=== PATIENT | female | born 1995 | race Caucasian/White ===

== ENCOUNTER → 2018-04-04 09:58 | Outpatient (CLI) | payer OTHER, MEDICAID, SELFPAY ==
[2018-04-04 10:42] LABS: Add Manual Diff / Slide Review NO; Appearance Urine UA CLEAR; Basophils Percent Auto 0.5 % (0-2); Bilirubin Urine UA NEGATIVE (NEGATIVE); Color Urine UA YELLOW; Eosinophils Percent Auto 0.3 % (2-4); Glucose Urine UA NEGATIVE (Normal); Hemoglobin 13.7 g/dL (12.0-16.0); Ketones Urine UA TRACE (NEGATIVE); Leukocyte Esterase Urine UA NEGATIVE (NEGATIVE); Lymphocytes Percent Auto 27.1 % (25-40); Mean Corpuscular HGB Conc 34.1 % (30-36); Mean Corpuscular Hemoglobin 31.3 PG (26-34); Mean Corpuscular Volume 91.7 fL (80-100); Monocytes Percent Auto 5.3 % (3-14); Neutrophils Absolute Auto 6300 /uL (3000-5900); Neutrophils Percent Auto 66.8 % (50-75); Nitrite Urine UA Negative (Negative); Occult Blood Urine UA NEGATIVE (Negative); Platelet Count 308 X10^3/uL (150-400); Protein Urine UA NEGATIVE (Negative); Red Blood Cell Count 4.36 X10^6/uL (4.0-5.2); Red Cell Distribution Width 13.1 % (11.6-14.8); Specific Gravity Urine UA 1.015 (1.000-1.035); White Blood Cell Count 9.4 X10^3/uL (4.5-11.0)
[2018-04-04 10:45] LABS: Glucose 84 mg/dL (70-100)
[2018-04-04 10:49] LABS: Hemoglobin A1C% w Est Avg Glu 4.7 % (4.0-6.0)
[2018-04-04 11:31] LABS: Hepatitis B Surface Antigen NEGATIVE s/c (NEGATIVE); Rubella Antibody IgG 17.9 IU/mL (>15)
[2018-04-04 11:47] LABS: HIV 1 and 2 Antibody NEGATIVE (NEGATIVE); Hep C Virus Ab w/Reflex Quant NEGATIVE s/c (NEGATIVE)
[2018-04-05 13:49] LABS: HSV 2 IGG AB 1.19 index (< 0.90)
[2018-04-11 13:57] LABS: Rapid Plasma Reagin NON-REACTIVE
== END ==
PROVIDERS: PCP Family Medicine
DX: Z3A.01 Less than 8 weeks gestation of pregnancy (principal)
CPT/HCPCS: 36415; 80055; 81003; 82947; 83036; 86695; 86696; 86703; 86787; 86803; 86850; 86900; 86901; 87086

== ENCOUNTER 2018-04-21 13:44 | Emergency (ER) | payer OTHER, MEDICAID, SELFPAY ==
--- NOTE | 2018-04-21 13:50 | ED_ITS ---
HPI - General Adult General Chief complaint: GI Bleed Stated complaint: puking blood,broken toe Time Seen by Provider: 04/21/18 13:49 Source: patient Mode of arrival: ambulatory Limitations: no limitations History of Present Illness HPI narrative: patient is a here for evaluation of a possible broken toe on her right foot. Patient states that she hit her right toe on a piece of furniture at home. This occurred earlier today. Has had bruising since then with pain. She is also here for 1 episode of vomiting bright red blood clots. She states she has had morning sickness for some time now. She did vomit today. She did state that it was a fairly violent episode. states she did not cough up the blood. Does have some nausea now. She also states that she has symptoms consistent with her normal UTI like symptoms. Related Data Home Medications Medication Instructions Recorded Confirmed albuterol sulfate [Ventolin HFA] 1 puff IH PRN PRN #0 03/14/17 epinephrine #0 03/14/17 fexofenadine #0 03/14/17 fluticasone [Flonase Allergy 1 spray INTRANASAL QDAY #0 03/14/17 Relief] lamotrigine [Lamictal] 1 tab PO QDAY #0 03/14/17 quetiapine 25 mg #0 03/14/17 sumatriptan succinate [Imitrex] 25 mg PO PRN PRN #0 03/14/17 Previous Rx's Medication Instructions Recorded ciprofloxacin HCl [Cipro] 500 mg PO BID 5 Days #0 tab 03/14/17 hydrocodone-acetaminophen [Holcomb] 1 tab PO Q6HP PRN #5 tab 03/14/17 nitrofurantoin macrocrystal 100 mg PO BID 5 Days #10 cap 04/21/18 Allergies Allergy/AdvReac Type Severity Reaction Status Date / Time SEAFOOD Allergy Severe HIVES,SWELL Uncoded 01/15/18 12:27 ING SHELLFISH Allergy Severe HIVES, Uncoded 01/15/18 12:27 SWELLING CEFALEXIN Allergy Unknown RASH Uncoded 01/15/18 12:27 From KEFLEX Allergy Unknown DIFFUSE Uncoded 01/15/18 12:27 BODY ITCHING SULFA Allergy Unknown Uncoded 01/15/18 12:27 Review of Systems Constitutional Denies fatigue and Denies fever(s) ENT Ears, Nose, Mouth, and Throat: Denies dysphagia, Reports dizziness, Denies sore throat and Denies throat swelling Cardiovascular Denies chest pain, Denies syncope, Denies palpitations and Denies dyspnea Respiratory Denies cough and Denies dyspnea Gastrointestinal Gastrointestinal: Denies abdominal pain, Denies constipation, Denies cramping, Denies dysphagia, Denies diarrhea, Denies loose stools, Reports nausea, Reports vomiting and Reports hematemesis Genitourinary Reports dysuria, Denies flank pain, Reports urinary hesitancy, Reports urinary urgency and Denies vaginal discharge Musculoskeletal Comments: Right toe pain Integumentary/Breasts Comments: bruising around the right toe Neurologic Denies confusion, Reports dizziness and Denies syncope Psychiatric Denies confusion Endocrine Denies fatigue and Denies palpitations Hematologic/Lymphatic Denies easy bleeding and Denies easy bruising Allergic/Immunologic Denies throat swelling Exam Initial Vital Signs Initial Vital Signs: Vital Signs Temperature 98.8 F 04/21/18 13:51 Pulse Rate 102 H 04/21/18 13:51 Respiratory Rate 20 04/21/18 13:51 Blood Pressure 103/69 04/21/18 13:51 Pulse Oximetry 99 04/21/18 13:51 Const General: cooperative, healthy appearing, comfortable, well developed, well groomed and No acute distress Orientation: alert, awake and oriented x3 Resp Effort & Inspection: normal respiratory effort Auscultation: clear to auscultation bilaterally Cardio Rate: regular rate Rhythm: regular rhythm Pulses: radial pulses present GI Inspection: non-distended Palpation: soft, No firm, No guarding and No tender Skin Lesions: no lesions Rashes: no rashes Neuro General: alert, awake and oriented x3 Cognition: normal cognition Speech: speech normal Gait: normal gait Motor: muscle tone normal throughout Sensory Exam: no sensory deficits noted Extrem Other: patient with tenderness to palpation in bruising around the 3rd toe on her right foot. This does not extend proximal to the MTP joint. No breaks in the skin. Nail intact. Psych Appearance: grossly normal and well kempt Course Vital Signs - 8 hr 04/21/18 13:51 Temperature 98.8 F Pulse Rate 102 H Respiratory Rate 20 Blood Pressure 103/69 Pulse Oximetry 99 Medical Decision Making MDM Narrative Medical decision making narrative: Patient's right toe exam is consistent with a right toe contusion versus fracture. Will hold on any x-ray for now. It was cortes-taped to the toe next to it. She does have which she states has a urinary tract infection. She states she gets chronic urinary tract infections. She states that she was on a medication but was taken off that medication from her chop saw operator because it was causing her rash. Will start her on Macrobid today secondary to her symptoms. The nausea vomiting is chronic. She did have 1 episode of what appeared to be hematemesis earlier today. No shortness of breath. No abdominal tenderness. I suspect this is secondary to a Inga- Boyd tear as it is most consistent with her history and physical exam. We did discuss her taking anti reflux medications that she can buy [id number]. We discussed return precautions. Will send her home with a prescription for antibiotics. She expressed understanding and agreement with plan. Discharge Plan Departure Patient Disposition: Home, Self-Care Clinical Impression: Inga-Boyd tear, Urinary tract infection, Fracture of right toe, Instructions: DI for Urinary Tract Infection (UTI), How To Perform RICE (Rest, Ice, Compress, Elevate), Nausea and Vomiting-Adult Activity Restrictions/Additional Instructions: Make sure you are increasing your fluid intake. recommend that you take an ouiz-uem-asuyood reflux medications such as Maalox or Tums. Take the antibiotics as directed. Keep all of your scheduled medical appointments. Return to the emergency department for any new or worsening symptoms Prescriptions: New nitrofurantoin macrocrystal 100 mg capsule 100 mg PO BID 5 Days Qty: 10 RF: 0 No Action lamotrigine [Lamictal] 100 MG tablet 1 tab PO QDAY Qty: 0 RF: 0 fexofenadine 60 MG tablet Qty: 0 RF: 0 epinephrine 0.3 MG/0.3 ML auto-injector Qty: 0 RF: 0 albuterol sulfate [Ventolin HFA] 90 MCG/PUFF HFA aerosol inhaler 1 puff IH PRN PRNQty: 0 RF: 0 sumatriptan succinate [Imitrex] 25 MG tablet 25 mg PO PRN PRNQty: 0 RF: 0 hydrocodone-acetaminophen [Holcomb] 5 MG/325 MG tablet 1 tab PO Q6HP PRNQty: 5 RF: 0 ciprofloxacin HCl [Cipro] 500 MG tablet 500 mg PO BID 5 Days Qty: 0 RF: 0 fluticasone [Flonase Allergy Relief] 9.9 ML spray,suspension 1 spray Intranasal QDAY Qty: 0 RF: 0 quetiapine 25 MG tablet 25 mg Qty: 0 RF: 0
[2018-04-21 13:51] VITALS: BP 103/69; PULSE 102; RESP 20; TEMP 37.1; O2SAT 99
== END 2018-04-21 14:15 | disposition home or self-care (01) ==
PROVIDERS: Emergency Provider Emergency Medicine; PCP Family Medicine
DX: N39.0 Urinary tract infection, site not specified (principal); K22.6 Gastro-esophageal laceration-hemorrhage syndrome
CPT/HCPCS: 99282

== ENCOUNTER 2018-05-20 21:57 | Emergency (ER) | payer OTHER, MEDICAID, SELFPAY ==
[2018-05-20 22:06] VITALS: BP 115/81; PULSE 91; RESP 15; TEMP 36.9; O2SAT 100; BMI 27.4
--- NOTE | 2018-05-20 23:01 | ED.NAVMDI ---
HPI - Nausea/Vomiting/Diarrhea General Chief complaint: Nausea/Vomiting/Diarrhea Stated complaint: PUKING BLOOD Time Seen by Provider: 05/20/18 22:47 Source: patient and old records reviewed Mode of arrival: ambulatory Limitations: no limitations History of Present Illness HPI Narrative: Patient is a 22-year-old female who is a he is currently 15 weeks presenting with vomiting and hematemesis. She has been diagnosed with hyperemesis gravidarum. Today she says she threw up bright red blood 2 times the 2nd time was about a quarter cup full. This is happened to her during this in the past. Today she was vomiting up quite a bit and forcefully. No fevers or chills no abdominal pain. She actually saw her doctor today who refilled her Zofran prescription. MD complaint: nausea and vomiting Related Data Home Medications Medication Instructions Recorded Confirmed albuterol sulfate [Ventolin HFA] 1 puff IH PRN PRN #0 03/14/17 05/20/18 epinephrine See Label Instructions .ROUTE 03/14/17 05/20/18 .COMPLEX PRN #0 PNV cmb#95-ferrous fumarate-FA 1 tab PO DAILY 05/20/18 05/20/18 [] [id number]-utbnenlssyuvr-hcuv 1 cap PO Q4H PRN 05/20/18 05/20/18 [Fioricet] Previous Rx's Medication Instructions Recorded ondansetron HCl 4 mg tablet 4 mg PO BID-TID PRN #30 tab 05/02/18 nitrofurantoin monohyd/m-cryst 100 mg PO BID #14 cap 05/21/18 [Macrobid] Allergies Allergy/AdvReac Type Severity Reaction Status Date / Time SEAFOOD Allergy Severe HIVES,SWELL Uncoded 05/20/18 22:06 ING SHELLFISH Allergy Severe HIVES, Uncoded 05/20/18 22:06 SWELLING CEFALEXIN Allergy Unknown RASH Uncoded 05/20/18 22:06 From KEFLEX Allergy Unknown DIFFUSE Uncoded 05/20/18 22:06 BODY ITCHING SULFA Allergy Unknown Uncoded 05/20/18 22:06 Review of Systems Review of Systems All systems reviewed & are unremarkable except as noted in HPI and below Constitutional Denies chills, Denies fever(s), Denies lethargy and Denies weakness ENT Ears, Nose, Mouth, and Throat: Denies vertigo, Denies dizziness, Denies facial pain and Denies epistaxis Cardiovascular Denies chest pain, Denies irregular heart rhythm, Denies lightheadedness, Denies palpitations, Denies dyspnea, Denies dyspnea on exertion and Denies orthopnea Respiratory Denies cough, Denies dyspnea, Denies dyspnea on exertion and Denies wheezing Gastrointestinal Gastrointestinal: Reports as per HPI, Reports vomiting and Reports hematemesis Musculoskeletal Denies back pain, Denies muscle weakness, Denies numbness and Denies tingling Integumentary/Breasts Denies pruritus, Denies erythema, Denies rash and Denies wounds Neurologic Denies confusion, Denies vertigo, Denies dizziness, Denies numbness, Denies tingling and Denies weakness Psychiatric Denies anxiety, Denies confusion, Denies depression, Denies homicidal ideation and Denies suicidal ideation Endocrine Denies palpitations Allergic/Immunologic Denies wheezing PFSH Medical History Hyperemesis gravidarum (Acute) Inga-Boyd syndrome (Acute) Exam Initial Vital Signs Initial Vital Signs: Vital Signs Temperature 98.5 F 05/20/18 22:06 Pulse Rate 91 H 05/20/18 22:06 Respiratory Rate 15 05/20/18 22:06 Blood Pressure 115/81 H 05/20/18 22:06 Pulse Oximetry 100 05/20/18 22:06 Const General: cooperative, healthy appearing, comfortable, No acute distress and No diaphoretic Orientation: alert, awake and oriented x3 Eyes Sclera: sclerae normal Neck Neck: normal visual inspection, full ROM and no meningeal signs Chest Chest: normal inspection of the chest Resp Effort & Inspection: normal respiratory effort Auscultation: clear to auscultation bilaterally, no rhonchi and no wheezes Cardio Rate: regular rate Rhythm: regular rhythm Heart Sounds: S1 normal and S2 normal GI Inspection: normal to inspection Palpation: soft, No firm, No guarding and No tender General: No CVA tenderness Neuro General: alert, awake and oriented x3 Cranial Nerves: CN's II-XI intact bilaterally Course Orders Ordered: ED Orders 05/20/18 22:55 Complete Blood Count AUTO DIFF Stat Comprehensive Metabolic Panel Stat 05/21/18 00:31 Urine Microscopic Stat Discontinued Medications Sodium Chloride (Normal Saline 0.9%) 500 mls @ 1,000 mls/hr IV BOLUS ONE Stop: 05/20/18 23:16 Last Infusion: 05/21/18 00:25 Dose: 0 mls/hr Admin: 05/20/18 23:02 Dose: 1,000 mls/hr Famotidine (Pepcid) 20 mg in 50 mls @ 200 mls/hr IV NOW ONE Stop: 05/20/18 23:15 Last Infusion: 05/20/18 23:36 Dose: 0 mls/hr Admin: 05/20/18 23:17 Dose: 200 mls/hr Nitrofurantoin Macrocrystals (Macrobid 100mg Prepack) 1 bottle MISC SEEINSTR ONE Stop: 05/21/18 01:14 Last Admin: 05/21/18 01:25 Dose: 1 bottle Ondansetron HCl (Zofran) 4 mg IV NOW ONE Stop: 05/20/18 22:51 Last Admin: 05/20/18 23:02 Dose: 4 mg Vital Signs - 8 hr 05/20/18 22:06 Temperature 98.5 F Pulse Rate 91 H Respiratory Rate 15 Blood Pressure 115/81 H Pulse Oximetry 100 MDM - Nausea/Vomiting/Diarrhea Lab Data Attestation: I reviewed the patient's lab results. Result diagrams: 05/20/18 22:55 05/20/18 22:55 Lab Results 05/20/18 05/20/18 05/21/18 Range/Units 22:55 22:55 00:31 WBC 9.7 (4.5-11.0) X10^3/uL RBC 4.00 (4.0-5.2) X10^6/uL Hgb 12.8 (12.0-16.0) g/dL Hct 36.5 (36-46) % MCV 91.2 (80-100) fL MCH 32.0 (26-34) PG MCHC 35.1 (30-36) % RDW 12.8 (11.6-14.8) % Plt Count 236 (150-400) X10^3/uL Neut % (Auto) 62.8 (50-75) % Lymph % (Auto) 30.4 (25-40) % Bureau % (Auto) 6.0 (3-14) % Eos % (Auto) 0.5 L (2-4) % Baso % (Auto) 0.3 (0-2) % Neut # (Auto) 6100 H (8232-6539) /uL Sodium 137 (137-145) mmol/L Potassium 4.1 (3.4-5.1) mmol/L Chloride 105 (98-107) mmol/L Carbon Dioxide 24 (22-32) mmol/L BUN 9 (7-17) mg/dL Creatinine 0.70 (0.52-1.04) mg/dL Estimated GFR > 60.0 (>60) mL/min BUN/Creatinine Ratio 12.9 (6-22) Glucose 78 (70-100) mg/dL Calcium 9.2 (8.4-10.2) mg/dL Total Bilirubin 0.3 (0.2-1.3) mg/dL AST 25 (14-36) IU/L ALT 41 (9-52) IU/L Alkaline Phosphatase 59 (38-126) U/L Total Protein 6.4 (6.3-8.2) g/dL Albumin 3.7 (3.5-5.0) g/dL Globulin 2.7 (1.7-4.1) g/dL Albumin/Globulin Ratio 1.4 (1.0-2.8) Urine RBC None seen (0-5/HPF) Urine WBC 0-1/hpf (0-5/HPF) Ur Squamous Epith Cells 5-10 /hpf H Urine Bacteria Many (>30) H (None) Urine Mucus 1+ H (Negative) Ur Culture Indicated? Cult not indicated Micro UA Comment Not Reportable MDM Narrative Medical decision making narrative: Patient has had no further vomiting in the ED. Hemodynamically stable. Hemoglobin and hematocrit are minimally decreased from March. Electrolytes are within normal limits. Glucose slightly low. She overall does not appear toxic he is tolerating oral fluids. Urine does have leukocytes and bacteria, but also many squamous cells likely contaminated. However will air on side of caution. Discharge Plan Departure Patient Disposition: Home, Self-Care Clinical Impression: Inga-Boyd syndrome, UTI (urinary tract infection) during , Hyperemesis gravidarum Discharge Date/Time: 05/21/18 01:55 Interventions: ED Discharge Assessment Last Done: 05/21/18 01:55 Instructions: Urinary Tract Infection, Inga Boyd Syndrome Activity Restrictions/Additional Instructions: *You have been diagnosed with Inga-Boyd tear, UTI, hyperemesis *What to do: Follow instructions previously given for staying hydrated *Continue to take medications as directed Macrobid 1 pill twice a day for 7 days *Follow up with your primary care provider in 2-3 days *Return to ER if you should have vomiting blood, pain, fever or any new, worsening or concerning symptoms Prescriptions: New nitrofurantoin monohyd/m-cryst [Macrobid] 100 mg capsule 100 mg PO BID Qty: 14 RF: 0 No Action epinephrine 0.3 MG/0.3 ML auto-injector See Label Instructions .ROUTE .COMPLEX PRN (Reason: Allergic Reaction) Qty: 0 RF: 0 albuterol sulfate [Ventolin HFA] 90 MCG/PUFF HFA aerosol inhaler 1 puff IH PRN PRN (Reason: Shortness Of Breath Or Wheezing) Qty: 0 RF: 0 ondansetron HCl 4 mg tablet 4 mg PO BID-TID PRN (Reason: nausea and vomiting) Qty: 30 RF: 0 hejysslgwq-euqbouecnhond-pvtg [Fioricet] 50-300-40 mg Capsule 1 cap PO Q4H PRN (Reason: Headache) RF: 0 PNV cmb#95-ferrous fumarate-FA [] 28 mg iron- 800 mcg Tablet 1 tab PO DAILY RF: 0
[2018-05-20 23:02] LABS: Add Manual Diff / Slide Review NO; Basophils Percent Auto 0.3 % (0-2); Eosinophils Percent Auto 0.5 % (2-4); Hematocrit 36.5 % (36-46); Hemoglobin 12.8 g/dL (12.0-16.0); Lymphocytes Percent Auto 30.4 % (25-40); Mean Corpuscular HGB Conc 35.1 % (30-36); Mean Corpuscular Volume 91.2 fL (80-100); Neutrophils Absolute Auto 6100 /uL (3000-5900); Neutrophils Percent Auto 62.8 % (50-75); Platelet Count 236 X10^3/uL (150-400); Red Cell Distribution Width 12.8 % (11.6-14.8); White Blood Cell Count 9.7 X10^3/uL (4.5-11.0)
[2018-05-20] MEDS: ONDANSETRON 4 MG/2 ML INJ IV (23:02)
[2018-05-20] MEDS: SODIUM CHLORIDE 0.9% 500 ML 1000 ML IV (23:02)
[2018-05-20 23:15] LABS: Alanine Aminotransferase 41 IU/L (9-52); Albumin 3.7 g/dL (3.5-5.0); Albumin Globulin Ratio 1.4 (1.0-2.8); Alkaline Phosphatase 59 U/L (38-126); Aspartate Aminotransferase 25 IU/L (14-36); BUN Creatinine Ratio 12.9 (6-22); Bilirubin Total 0.3 mg/dL (0.2-1.3); Blood Urea Nitrogen 9 mg/dL (7-17); Calcium 9.2 mg/dL (8.4-10.2); Carbon Dioxide 24 mmol/L (22-32); Chloride 105 mmol/L (98-107); Estimated Glomerular Filt Rate > 60.0 mL/min (>60); Globulin 2.7 g/dL (1.7-4.1); Glucose 78 mg/dL (70-100); HEMOLYSIS < 15 (0-50); Potassium 4.1 mmol/L (3.4-5.1); Sodium 137 mmol/L (137-145); Total Protein 6.4 g/dL (6.3-8.2)
[2018-05-20] MEDS: FAMOTIDINE 20 MG/50 ML PIGGYBACK 200 MG IV (23:17)
[2018-05-21 00:49] LABS: RBC Urine None Seen (0-5/HPF)
[2018-05-21 01:03] LABS: WBC Urine 0-1/HPF (0-5/HPF)
[2018-05-21 01:04] LABS: Bacteria Urine Many (>30); Culture Indicated Urine Cult Not Indicated; Mucus Urine 1+ (Negative); Squamous Epithelial Cell Urine 5-10 /HPF
[2018-05-21] MEDS: NITROFURANTOIN 100MG PREPACK 1 BOTTLE MISC (01:25)
== END 2018-05-21 01:55 | disposition home or self-care (01) ==
PROVIDERS: Emergency Provider Emergency Medicine; PCP Family Medicine
DX: O21.0 Mild hyperemesis gravidarum (principal); O23.41 Unspecified infection of urinary tract in pregnancy, first trimester; K22.6 Gastro-esophageal laceration-hemorrhage syndrome; Z3A.15 15 weeks gestation of pregnancy
CPT/HCPCS: 36591; 80053; 81003; 81015; 85025; 96361; 96365; 96375; 99283; 99284; J2405

== ENCOUNTER → 2018-05-27 16:06 | Outpatient (CLI) | payer OTHER, MEDICAID, SELFPAY ==
[2018-05-27 17:55] LABS: Free T3, Triiodothyronine Free 3.16 pg/mL (2.77-5.27); Free T4, Direct Thyroxine 0.95 ng/dL (0.78-2.19)
[2018-05-27 18:09] LABS: TSH w/ Reflex to FT4 0.83 uIU/mL (0.47-4.68)
[2018-06-02 16:32] LABS: AFP, Serum 64.6 ng/mL; Calc Gestational Age 16.1; Cigarette Smoker N; Donated Egg NOT GIVEN; Donor Egg Age NOT GIVEN; Inhibin A, Dimeric 192 pg/mL; Maternal Weight 150 lbs; Number of Fetuses 1; Previous Pregnancy Down Syndro NOT GIVEN; hCG, MoM 0.97; hCG, Serum 32.6 IU/mL
== END ==
PROVIDERS: PCP Family Medicine
DX: Z36.9 Encounter for antenatal screening, unspecified (principal); Z3A.16 16 weeks gestation of pregnancy; O21.0 Mild hyperemesis gravidarum
CPT/HCPCS: 36415; 82105; 82677; 84439; 84443; 84481; 84702; 86336

== ENCOUNTER → 2018-10-10 15:53 | Outpatient (CLI) | payer OTHER, MEDICAID, SELFPAY ==
[2018-10-15 17:57] LABS: Strep Grp B PCR NEG for Grp B Strep
== END ==
PROVIDERS: PCP Family Medicine
DX: Z34.93 Encounter for supervision of normal pregnancy, unspecified, third trimester (principal); Z3A.36 36 weeks gestation of pregnancy
CPT/HCPCS: 87653

== ENCOUNTER 2018-11-03 10:33 | Inpatient (IN) | payer OTHER, MEDICAID, SELFPAY ==
[2018-11-03] MEDS: LACTATED RINGERS 1,000 ML 42 ML IV (11:10)
[2018-11-03 11:42] VITALS: BP 128/76
--- NOTE | 2018-11-03 12:48 | PM.PREOP ---
Pre-operative Note Interval Note History & Physical reviewed/Exam performed by Physician: Yes Changes to H&P: No ASA Class (for procedural sedation): I
[2018-11-03 13:06] LABS: Add Manual Diff / Slide Review NO; Basophils Absolute Auto 0 /uL (0-100); Basophils Percent Auto 0.4 % (0-2); Eosinophils Absolute Auto 0 /uL (0-450); Eosinophils Percent Auto 0.4 % (2-4); Hematocrit 34.9 % (36-46); Hemoglobin 11.6 g/dL (12.0-16.0); Lymphocytes Absolute Auto 1700 /uL (1100-4500); Lymphocytes Percent Auto 17.5 % (25-40); Mean Corpuscular HGB Conc 33.3 % (30-36); Mean Corpuscular Hemoglobin 30.9 PG (26-34); Mean Corpuscular Volume 92.7 fL (80-100); Monocytes Absolute Auto 600 /uL (0-900); Monocytes Percent Auto 6.2 % (3-14); Neutrophils Absolute Auto 7200 /uL (1500-7000); Neutrophils Percent Auto 75.5 % (50-75); Platelet Count 229 X10^3/uL (150-400); Red Blood Cell Count 3.77 X10^6/uL (4.0-5.2); Red Cell Distribution Width 13.2 % (11.6-14.8); White Blood Cell Count 9.6 X10^3/uL (4.5-11.0)
[2018-11-03] MEDS: CEFOTETAN 2 GM/50 ML PIGGYBACK IV (13:23)
--- NOTE | 2018-11-03 13:32 | SUR.OPER ---
Supine on padded OR bed, head on pillow, arms secured on padded arm boards at <90 degrees abduction, legs uncrossed, safety belt at thigh, tape over blanket over lower legs.
[2018-11-03 14:13] VITALS: BP 110/63; PULSE 66; RESP 15; O2SAT 96
--- NOTE | 2018-11-03 14:14 | PM.GYNOP.1 ---
Operative Date/Time/Diagnoses Date of procedure: 11/03/18 Time of procedure: 14:14 Pre-op diagnosis: Term intrauterine term intrauterine 39 weeks Post-op diagnosis: same Procedure: Procedures Operation Date: 11/03/18 13:30 Actual Procedures Side Surgeon p Section-Repeat Leo Colunga MD Indications: Term intrauterine 39 weeks History of prior section Surgeon: Leo Colunga Tire Rebuilder: Rita Bird Anesthesia Type: Spinal Operative Notes Findings: Normal uterus normal tubes and ovaries Live-born male infant Closure Type: primary Specimen(s): none Estimated blood loss (mL): 500 Blood products transfused: none Procedure in detail: The patient was placed supine upon the operating table and anesthetized. She was then draped and prepared in the usual fashion. Transverse incision is made through the old scar the subcutaneous tissue incised to the fascia. Fascia was incised with a sharp knife transversely in each direction. The pyramidalis muscles were incised the midline. Incision was then widened by blunt finger dissection. Peritoneum was picked up and incised and widened by blunt finger dissection. The bladder blade was set in place. Peritoneum over the lower uterine segment was picked up and incised laterally in each direction in the bladder taken down. Bladder blade was then replaced. Transverse scoring incision was made across the lower uterine segment. Perforating incision was made centrally. Membranes were ruptured and a live-born male was delivered with scores of nine at 1 min and nine at 5 min in good condition. The respiratory therapist and nurses were in attendance) oz infant normal in good condition. Cord blood was obtained. Placenta was removed without manual manipulation. All membranes were massage from the endometrial cavity. Lateral edges of the incision were grasped with Allis [place] clamps. The incision was closed in an imbricating fashion using a two layer technique with 1. Chromic suture. No bleeding points were seen. Visceral peritoneum was closed with a running two 0 chromic suture. Tubes and ovaries appeared to be normal. The parietal perineum was grasped and closed with a running two 0 chromic suture. Area was copiously irrigated. The pyramidal muscles were reapproximated in the midline using 1. Vicryl suture. The fascia was closed with two continuous 1. Vicryl sutures. Area was copiously irrigated. Subcutaneous tissue was closed in two layers. 1st layer was interrupted three 0 Vicryl suture. 2nd layer was a running horizontal mattress three 0 Vicryl suture. The skin was further approximated with Steri-Strips. The end of the procedure the wound was dry. There is no bleeding. The urine was clear. Patient was taken to the recovery room in satisfactory condition. Post-operative Condition: stable Disposition: PACU Plan for aftercare: To Labor and delivery
[2018-11-03 14:19] VITALS: BP 109/72; PULSE 74; RESP 16; O2SAT 97
--- NOTE | 2018-11-03 14:20 | P.OP_ITS ---
Operative Date/Time/Diagnoses Date of procedure: 11/03/18 Time of procedure: 14:14 Pre-op diagnosis: Term intrauterine term intrauterine 39 weeks Post-op diagnosis: same Procedure: Procedures Operation Date: 11/03/18 13:30 Actual Procedures Side Surgeon p Section-Repeat Leo Colunga MD Indications: Term intrauterine 39 weeks History of prior section Surgeon: Leo Colunga Bicycle Repair Technician: Rita Bird Anesthesia Type: Spinal Operative Notes Findings: Normal uterus normal tubes and ovaries Live-born male infant Closure Type: primary Specimen(s): none Estimated blood loss (mL): 500 Blood products transfused: none Procedure in detail: The patient was placed supine upon the operating table and anesthetized. She was then draped and prepared in the usual fashion. Transverse incision is made through the old scar the subcutaneous tissue incised to the fascia. Fascia was incised with a sharp knife transversely in each direction. The pyramidalis muscles were incised the midline. Incision was then widened by blunt finger dissection. Peritoneum was picked up and incised and widened by blunt finger dissection. The bladder blade was set in place. Peritoneum over the lower uterine segment was picked up and incised laterally in each direction in the bladder taken down. Bladder blade was then replaced. Transverse scoring incision was made across the lower uterine segment. Perforating incision was made centrally. Membranes were ruptured and a live- born male infant was delivered with scores of nine at 1 min and nine at 5 min in good condition. The respiratory therapist and nurses were in attendance) oz normal in good condition. Cord blood was obtained. Placenta was removed without manual manipulation. All membranes were massage from the endometrial cavity. Lateral edges of the incision were grasped with Allis [place] clamps. The incision was closed in an imbricating fashion using a two layer technique with 1. Chromic suture. No bleeding points were seen. Visceral peritoneum was closed with a running two 0 chromic suture. Tubes and ovaries appeared to be normal. The parietal perineum was grasped and closed with a running two 0 chromic suture. Area was copiously irrigated. The pyramidal muscles were reapproximated in the midline using 1. Vicryl suture. The fascia was closed with two continuous 1. Vicryl sutures. Area was copiously irrigated. Subcutaneous tissue was closed in two layers. 1st layer was interrupted three 0 Vicryl suture. 2nd layer was a running horizontal mattress three 0 Vicryl suture. The skin was further approximated with Steri-Strips. The end of the procedure the wound was dry. There is no bleeding. The urine was clear. Patient was taken to the recovery room in satisfactory condition. Post-operative Condition: stable Disposition: PACU Plan for aftercare: To Labor and delivery
--- NOTE | 2018-11-03 14:21 | SUR.OPER ---
Healthy baby boy born at 1328, heart rate 143. 9. Suman lira MD, resident assisted.
[2018-11-03] MEDS: LACTATED RINGERS 1,000 ML 100 ML IV (16:22)
[2018-11-03] MEDS: OXYCODONE/ACETAMINOPHEN 5/325 TABLET 1 TAB PO (17:10)
[2018-11-03] MEDS: OXYCODONE/ACETAMINOPHEN 5/325 TABLET 2 TAB PO ×2 (18:39→22:34)
[2018-11-03] MEDS: KETOROLAC 30 MG/ML VIAL IV (19:53)
[2018-11-04] MEDS: KETOROLAC 30 MG/ML VIAL IV ×2 (02:35→08:22)
[2018-11-04] MEDS: OXYCODONE/ACETAMINOPHEN 5/325 TABLET 2 TAB PO ×2 (05:29→18:10)
[2018-11-04 07:08] LABS: Hemoglobin 10.5 g/dL (12.0-16.0)
--- NOTE | 2018-11-04 08:04 | PM.OBPN.1 ---
Subjective - OB Patient comments: no complaints and pain well controlled [place] baby status: doing well [place] feeding status: exclusively breast feeding Narrative: Patient post section doing well Date Patient Seen: 11/04/18 Time Patient Seen: 08:05 Exam Vital Signs (past 8 hours): Oxygen Delivery Method Room Air Narrative Exam Narrative: Fundus U minus three Incision looks fine Lochia scant Objective Labs Result Diagrams: 11/04/18 06:40 Labs: Laboratory Results - last 24 hr 11/03/18 11/03/18 11/04/18 11:10 11:10 06:40 WBC 9.6 RBC 3.77 L Hgb 11.6 L Hct 34.9 L MCV 92.7 MCH 30.9 MCHC 33.3 RDW 13.2 Plt Count 229 Neut % (Auto) 75.5 H Lymph % (Auto) 17.5 L [place] % (Auto) 6.2 Eos % (Auto) 0.4 L Baso % (Auto) 0.4 Neut # (Auto) 7200 H Lymph # (Auto) 1700 [place] # (Auto) 600 Eos # (Auto) 0 Baso # (Auto) 0 Blood Type O Negative Antibody Screen Positive Antibody Identification Anti-D Maternal Bleed Negative 11/04/18 11/04/18 06:40 06:40 WBC RBC Hgb 10.5 L Hct 31.0 L MCV MCH MCHC RDW Plt Count Neut % (Auto) Lymph % (Auto) [place] % (Auto) Eos % (Auto) Baso % (Auto) Neut # (Auto) Lymph # (Auto) [place] # (Auto) Eos # (Auto) Baso # (Auto) Blood Type Antibody Screen Cancelled Antibody Identification Maternal Bleed Assessment & Plan Plan day: 1 plan OB: routine care and routine postop care Comments: Doing well no problems Time Spent With Patient Total time spent is greater than 50% in coordination of care (as documented) at patient's floor/unit and/or counseling patient: less than 15 minutes
[2018-11-04] MEDS: DOCUSATE 250 MG CAPSULE PO (08:23)
[2018-11-04] MEDS: PRENATAL VIT,CALC/IRON/FOLIC 1 TABLET 1 TAB PO (08:23)
[2018-11-04] MEDS: OXYCODONE/ACETAMINOPHEN 5/325 TABLET 1 TAB PO (13:42)
[2018-11-04] MEDS: RHO(D) IMMUNE GLOBULIN 1,500 UNIT SYRINGE 1500 UNIT IM (14:55)
[2018-11-04] MEDS: IBUPROFEN 600 MG TABLET PO (20:11)
[2018-11-05] MEDS: OXYCODONE/ACETAMINOPHEN 5/325 TABLET 2 TAB PO ×2 (00:27→05:33)
[2018-11-05] MEDS: IBUPROFEN 600 MG TABLET PO ×2 (05:32→11:41)
[2018-11-05] MEDS: DOCUSATE 250 MG CAPSULE PO (09:31)
[2018-11-05] MEDS: OXYCODONE/ACETAMINOPHEN 5/325 TABLET 1 TAB PO (09:32)
[2018-11-05 09:54] VITALS: BP 102/69; PULSE 79; RESP 18; TEMP 36.9
--- NOTE | 2018-11-05 10:47 | P.DS_ITS ---
Discharge Providers Date of admission: 11/03/18 10:33 Primary care physician: Brooke Mak DO Consults: 11/03/18 15:25 Consult to Production Supervisor Off Shift Routine Comment: Discharge provider: Audelia Au MD Discharge Date: 11/05/18 Summary Date Patient Seen: 11/05/18 Time Patient Seen: 10:46 Hospital Course: Patient was admitted for repeat low-transverse section at 39 weeks. She and the baby had no problems post . Patient denies any signs or symptoms of preeclampsia. Her pain is under control with narcotic and Motrin. She is urinating and ambulating well. She is passing gas. Blood pressure 102/69, pulse 79, temperature 98.5? Abdomen is soft, nontender. Uterus is firm, at U, appropriately tender. Incision is clean, dry, intact without evidence of infection. Mild lochia. Extremities without edema and nontender. Patient's blood type is O negative, she did receive RhoGAM prior to discharge, rubella immune Baby Boy measuring 6 lb 3.9 oz, 2833 g Peripartum Data Delivery Method: Section Procedures: Repeat low-transverse section complications: none Status at Discharge Functional status at discharge: independent ambulation Overall status at discharge: patient is progressing back to baseline Time Spent with Patient Total time spent providing and/or coordinating discharge services: Objective Labs Result Diagrams: 11/04/18 06:40 Discharge Plan Discharge Plan Patient Disposition: Home Discharge Med Rec/Prescriptions Prescriptions: New oxycodone-acetaminophen 5-325 mg Tablet 2 tab PO Q4HR PRN (Reason: Pain, Severe (7-10)) Qty: 40 RF: 0 ibuprofen 600 mg Tablet 600 mg PO Q6HR PRN (Reason: As Needed For Fever/Mild Pain) Qty: 30 RF: 0 docusate sodium 250 mg Capsule 250 mg PO DAILY Qty: 20 RF: 0 Continue epinephrine 0.3 MG/0.3 ML auto-injector See Label Instructions .ROUTE .COMPLEX PRN (Reason: Allergic Reaction) Qty: 0 RF: 0 albuterol sulfate [Ventolin HFA] 90 MCG/PUFF HFA aerosol inhaler 1 puff IH PRN PRN (Reason: Shortness Of Breath Or Wheezing) Qty: 0 RF: 0 PNV cmb#95-ferrous fumarate-FA [] 28 mg iron- 800 mcg Tablet 1 tab PO DAILY RF: 0 No Action Double Electric Breast Pump Qty: 1 RF: 0 Follow up/Referrals: Brooke Marcano DO [Primary Care Provider] - Leo Colunga MD [Family Provider] - 1 Week (Incision check with Dr. Au on Saturday11/12/18 at 10:45 AM.) Provider Discharge Instructions Diet: Regular Activity: Nothing In vagina for 4 weeks. Do not lift anything heavier than the baby for 6 weeks Skin/Wound/Dressing Care Report to your healthcare provider any signs of infection, such as:: chills, fever, increased pain and unusual redness Dressing: Leave Steri-Strips in place. Can get wet just pat dry. Remove after 1 week Visit Report/Discharge Packet Stand Alone Forms: Discharge: Care Visit Report Forms: Stroke Signs & Symptoms Discharge Data Primary Care Provider: Brooke Marcano Attending Provider: Leo Colunga Admit Date/Time: 11/03/18 10:33 Discharges patient from system. Discharge Date/Time: 11/05/18 12:00
== END 2018-11-05 12:00 | disposition home or self-care (01) | DRG 540 ==
PROVIDERS: PCP Family Medicine
PROC: 10D00Z1 Extraction of Products of Conception, Low, Open Approach (ICD-10-PCS; CPT 59514; principal; 2018-11-03 13:30)
DX: O34.219 Maternal care for unspecified type scar from previous cesarean delivery (principal); Z3A.39 39 weeks gestation of pregnancy; Z37.0 Single live birth
CPT/HCPCS: 36415; 59050; 59514; 85014; 85018; 85025; 85461; 86850; 86870; 86900; 86901; J1885; J2274; J2790; J3010

== ENCOUNTER 2019-01-23 07:39 | Day surgery (SDC) | payer OTHER, MEDICAID, SELFPAY ==
[2019-01-15 08:11] VITALS: BMI 25.9
[2019-01-23] VITALS (8 sets, daily range): BP systolic 101–116; BP diastolic 65–84; PULSE 70–102; RESP 10–19; TEMP 36.5–37.2; O2SAT 95–100; BMI 25.9
--- NOTE | 2019-01-23 08:05 | SUR.OPER ---
Lithotomy on padded OR bed, head on pillow, arms secured on padded arm boards at <90 degrees abduction. Legs secured in padded yellow fins stirrups.
--- NOTE | 2019-01-23 08:09 | PM.PREOP ---
Pre-operative Note Interval Note History & Physical reviewed/Exam performed by Physician: Yes Changes to H&P: No
--- NOTE | 2019-01-23 08:10 | PM.GYNHP.1 ---
History of Present Illness Reason for admission: other (Desire for sterilization) Narrative: Sabi High is a 23 year old female here for tubal ligation [facility] Medical History (Updated 01/23/19 @ 08:12 by Audelia Au MD) Asthma (Acute) Bipolar 1 disorder (Acute) Migraines (Acute) Recurrent UTI (Acute) Hyperemesis gravidarum (Acute) Inga-Boyd syndrome (Acute) Surgical History (Updated 01/23/19 @ 08:12 by Audelia Au MD) History of section (Acute 11/03/18) Hx of cholecystectomy (Acute 07/28/14) Hx of eye surgery (Acute) Social History Smoking Status: Former smoker Social History Smoking Status: Former smoker Meds Home Medications Medication Instructions Recorded Confirmed Type albuterol sulfate [Ventolin HFA] 1 puff IH PRN PRN #0 03/14/17 12/04/18 History epinephrine See Rx Instructions .ROUTE 03/14/17 12/04/18 History .COMPLEX PRN #0 PNV cmb#95-ferrous fumarate-FA 1 tab PO DAILY 05/20/18 12/04/18 History [] Double Electric Breast Pump #1 ea 10/08/18 12/04/18 Rx docusate sodium 250 mg PO DAILY #20 cap 11/05/18 12/04/18 Rx Allergies Allergy/AdvReac Type Severity Reaction Status Date / Time Fish Containing Products Allergy Severe SEAFOOD - Verified 12/04/18 11:49 HIVES, SWELLING shellfish derived Allergy Severe HIVES, Verified 12/04/18 11:49 SWELLING cephalexin Allergy Unknown Rash Verified 12/04/18 11:49 Review of Systems Review of Systems All systems reviewed & are unremarkable except as noted in HPI and below Exam Narrative Exam Narrative: HEENT exam within normal limits. Lungs are clear to auscultation and percussion. Heart is regular rate and rhythm. Abdomen is soft, nontender. Normal external genitalia. Uterus is not enlarged, nontender. No adnexal masses or tenderness. Extremities without edema and nontender Assessment & Plan (1) Admission for sterilization: Current visit: Yes Status: Acute Assessment & Plan narrative: Patient here for sterilization. The laparoscopic tubal ligation with cauterization was discussed with the patient. Risk of damage to internal structures, scar tissue, ectopic discussed. Possibility of needing to open the abdomen. Consent form was signed and questions answered. Time Spent With Patient Time with patient: less than 15 minutes
--- NOTE | 2019-01-23 08:13 | P.HPOB_ITS ---
History of Present Illness Reason for admission: other (Desire for sterilization) Narrative: Sabi High is a 23 year old female here for tubal ligation [facility] Medical History (Updated 01/23/19 @ 08:12 by Audelia Au MD) Asthma (Acute) Bipolar 1 disorder (Acute) Migraines (Acute) Recurrent UTI (Acute) Hyperemesis gravidarum (Acute) Inga-Boyd syndrome (Acute) Surgical History (Updated 01/23/19 @ 08:12 by Audelia Au MD) History of section (Acute 11/03/18) Hx of cholecystectomy (Acute 07/28/14) Hx of eye surgery (Acute) Social History Smoking Status: Former smoker Social History Smoking Status: Former smoker Meds Home Medications Medication Instructions Recorded Confirmed Type albuterol sulfate [Ventolin HFA] 1 puff IH PRN PRN #0 03/14/17 12/04/18 History epinephrine See Rx Instructions .ROUTE 03/14/17 12/04/18 History .COMPLEX PRN #0 PNV cmb#95-ferrous fumarate-FA 1 tab PO DAILY 05/20/18 12/04/18 History [] Double Electric Breast Pump #1 ea 10/08/18 12/04/18 Rx docusate sodium 250 mg PO DAILY #20 cap 11/05/18 12/04/18 Rx Allergies Allergy/AdvReac Type Severity Reaction Status Date / Time Fish Containing Products Allergy Severe SEAFOOD - Verified 12/04/18 11:49 HIVES, SWELLING shellfish derived Allergy Severe HIVES, Verified 12/04/18 11:49 SWELLING cephalexin Allergy Unknown Rash Verified 12/04/18 11:49 Review of Systems Review of Systems All systems reviewed & are unremarkable except as noted in HPI and below Exam Narrative Exam Narrative: HEENT exam within normal limits. Lungs are clear to auscultation and percussion. Heart is regular rate and rhythm. Abdomen is soft, nontender. Normal external genitalia. Uterus is not enlarged, nontender. No adnexal masses or tenderness. Extremities without edema and nontender Assessment & Plan (1) Admission for sterilization: Current visit: Yes Status: Acute Assessment & Plan narrative: Patient here for sterilization. The laparoscopic tubal ligation with cauterization was discussed with the patient. Risk of damage to internal structures, scar tissue, ectopic discussed. Possibility of needing to open the abdomen. Consent form was signed and questions answered. Time Spent With Patient Time with patient: less than 15 minutes
[2019-01-23] MEDS: APREPITANT 40 MG CAPSULE PO (08:22)
[2019-01-23] MEDS: MIDAZOLAM 2 MG/2 ML VIAL IV (08:26)
[2019-01-23] MEDS: LACTATED RINGERS 1,000 ML 42 ML IV (08:32)
--- NOTE | 2019-01-23 09:09 | PM.OP.1 ---
Operative Date/Time/Diagnoses Date of procedure: 01/23/19 Time of procedure: 09:09 Pre-op diagnosis: Wish for sterilization Post-op diagnosis: same Procedure & Clinicians Procedure: Laparoscopic tubal ligation by cauterization Same procedure as scheduled: Yes Indications: Patient wishes sterilization Surgeon: Audelia Au Click Yes if Unassisted: Yes Anesthesia Type: General Operative Notes Findings: Normal intra-abdominal contents. No evidence of endometriosis, no scar tissue, no internal hernias. Normal appearing tubes ovaries and uterus Closure Type: primary Specimen(s): none sent Estimated Blood Loss (mL): 1 Blood products transfused: none Procedure in detail: Patient was brought to the operating room where she underwent general anesthesia. She was placed in low yellowfin stirrups and prepped and draped in usual sterile fashion. No antibiotics were indicated. Pulsatile stockings were in place and functional. Warming was with blankets. A sponge stick was placed in the vagina. The area of the incisions were injected with half percent Marcaine with epinephrine. An incision was made in the umbilicus with a scalpel and the Verres needle placed in the abdomen. Confirmation of correct placement of the needle was performed by withdrawing on the syringe and then allowing fluid to fall freely through the needle. The abdomen was insufflated to 3 L of CO2. A 5 mm trocar was placed under direct visualization. 1 other 5 mm trochars were placed in the right lower quadrant under direct visualization after incising the skin. There did not appear to be any damage with placement of the trocars. The right fallopian tube was grasped and cauterized 3 areas next to each other and cutting in the middle with the PK generator. Same procedure was performed on the left fallopian tube. Adequate hemostasis was noted. The CO2 was allowed to escape from the abdomen. The trochars were removed. Skin was closed with 4-0 monocryl. The patient went to recovery room in good condition. Complications: none Condition: stable Disposition: same day surgery Plan for aftercare: Home when awake and stable. Follow-up incision check in 1 week.
[2019-01-23] MEDS: BUPIVACAINE 0.5% W/ EPI (PF) VIAL 30 ML INJ (09:15)
[2019-01-23] MEDS: ALBUTEROL 2.5 MG/3 ML NEB (ADULT) INH (09:21)
--- NOTE | 2019-01-23 09:24 | SUR.PHASEI ---
albuterol neb given per pt request, c/o dyspnea,
[2019-01-23] MEDS: ONDANSETRON 4 MG/2 ML INJ IV (09:38)
[2019-01-23] MEDS: OXYCODONE/ACETAMINOPHEN 5/325 TABLET 1 TAB PO (09:50)
== END 2019-01-23 10:16 | disposition home or self-care (01) ==
PROVIDERS: PCP Family Medicine; Visit Provider Specialist
PROC: (CPT 58671; principal; 2019-01-23 08:30)
DX: Z30.2 Encounter for sterilization (principal); J45.909 Unspecified asthma, uncomplicated
CPT/HCPCS: 58670; J0330; J1100; J1885; J2250; J2405; J2704; J3010; J7613; J8501